=== PATIENT | female | born 1960 | race Caucasian/White ===

== ENCOUNTER → 2024-07-24 | Day surgery (SDC) | payer OTHER ==
[~2024-07-24] MED LIST: CENTRUM ADULTS1 EACH PO; DEXAMETHASONE SOD PHOS INJ 4 MG/ML SDV ONE; FAMOTIDINE 20 MG/2 ML VIAL IV ONE; FENTANYL CITRATE/PF 100MCG/2 ML INJ ONE; GLYCOPYRROLATE INJ 0.2 MG/ML VIAL ONE; KETAMINE 50MG/5ML SYR ONE; KETOROLAC TROMETHAMINE 30 MG/ML VIAL ONE; LEVOTHYROXINE100 MC1 PO; LIDOCAINE HCL 2% LOCAL INJ 5 ML SDV VIAL INJ ONE; MIDAZOLAM HCL 2 MG/2 ML VIAL ONE; ONDANSETRON HCL INJ 2MG/ML 2ML 2 MG/ML VIAL ONE; PROPOFOL IV EMULSION 10 MG/ML 20 ML VIAL ONE
[2024-07-24] MEDS: LACTATED RINGER'S 1,000 ML ONE (06:03)
[2024-07-24 07:41] VITALS: TEMP 97.4
[2024-07-24] MEDS: HYDROMORPHONE 1MG/1ML INJ ONE (07:57)
[2024-07-24 08:40] VITALS: BP 145/81; PULSE 91; RESP 14; O2SAT 97
== END | disposition home or self-care (01) ==
LOC: OR 05:36
PROVIDERS: ATTEND Specialist
DX: S83.241A Other tear of medial meniscus, current injury, right knee, initial encounter (principal); M67.51 Plica syndrome, right knee; M22.41 Chondromalacia patellae, right knee; M17.11 Unilateral primary osteoarthritis, right knee; E66.01 Morbid (severe) obesity due to excess calories; X58.XXXA Exposure to other specified factors, initial encounter; Z79.899 Other long term (current) drug therapy; Z68.41 Body mass index [BMI] 40.0-44.9, adult
CPT/HCPCS: 29875; 93005; J0690; J1100; J1171; J1885; J2003; J2250; J2405; J2704; J3010; J7121